=== PATIENT | male | born 1985 | race African-American/Black ===

== ENCOUNTER 2025-03-05 17:38 | Inpatient (IN) | payer BC ==
[2025-03-05 18:16] LABS: Absolute Lymphocytes (CBC) 2.0 K/uL (0.7-4.9); Hematocrit 43.8 % (39.6-49.0); Hemoglobin 14.4 g/dL (13.6-17.9); MCH 27.6 pg (27.0-35.0); MCHC 33.0 g/dL (32.0-36.0); MCV 83.7 fL (80-100); MPV 7.8 fL (7.6-11.3); Nucleated RBC Absolute Count 0.0 (0-0); Nucleated Red Blood Cells % 0.0 % (0-0); RBC Red Blood Cell Count 5.23 M/uL (4.33-5.43); White Blood Count 10.10 thou/uL (4.3-10.9)
[2025-03-05] MEDS ORDERED: NA CHLORIDE 0.9% 1,000 ML ONE (18:24)
[2025-03-05 18:33] LABS: Anion Gap 16.6 mEq/L (5.0-15.0); BUN Blood Urea Nitrogen 14.0 mg/dL (7-18); Glucose Level 98.0 mg/dL (74-106); Potassium 3.6 mEq/L (3.5-5.1)
--- NOTE | 2025-03-05 19:15 | RAD REPORT ---
EXAM: CT face with contrast HISTORY: Facial pain and swelling COMPARISON: None TECHNIQUE: Multiple contiguous axial images were obtained and a CT of the face with contrast. Sagitta l and coronal reformats were performed. Automated exposure control, adjustment of the mA and/or kV according to patient size, and/or iterative reconstruction. Unless otherwise specified, incidental f indings do not require dedicated imaging follow-up. FINDINGS: 4 x 3.5 x 2 cm (CC by AP by transverse) low-density fluid collection lies superficial to the left man dible. It has an enhancing rim and has the appearance of an abscess. Stranding is present within the adjacent fat. No abnormality of the parotid gland seen. Visualized airway unremarkable. No fluid visualized within the sinuses. IMPRESSION: 4 x 3.5 x 2 cm abscess superficial to the left mandible
[2025-03-05] MEDS ORDERED: CLINDAMYCIN 600MG/D5W 50 ML IV ONE (19:22)
[2025-03-05] MEDS ORDERED: NA CHLORIDE 0.9% 100 ML ONE (19:36)
[2025-03-05] MEDS ORDERED: AMPICILLIN/SULBACTAM 3GM/VIAL ONE (19:36)
--- NOTE | 2025-03-05 19:38 | ER ---
Nurse's Notes [facility] Name: Cory Zavala Jr Age: 39 yrs Sex: Male : 1985 Arrival Date: 03/05/2025 Time: 17:38 Bed 5 Private MD: Diagnosis: Facial Abscess;Facial Pain Presentation: 03/05 17:50 Chief complaint: Patient states: has had L-sided facial swelling and 10/10 pain from iw impacted wisdom teeth on the L side of the mouth for the past 10 days, described as achy. Was put on abx from oral surgeon, but was told to come here before he can proceed with surgery. Coronavirus screen: chills. Ebola Screen: Patient denies travel to an Ebola-affected area in the 21 days before illness onset. No symptoms or risks identified at this time. Initial Sepsis Screen: Does the patient meet any 2 criteria? No. Patient's initial sepsis screen is negative. Does the patient have a suspected source of infection? No. Patient's initial sepsis screen is negative. Risk Assessment: Do you want to hurt yourself or someone else? Patient reports no desire to harm self or others. Onset of symptoms was February 23, 2025. 17:50 Method Of Arrival: Ambulatory iw 17:50 Acuity: JEFFREY 3 iw Triage Assessment: 17:55 General: Appears distressed, uncomfortable, Behavior is cooperative, appropriate for iw age, crying, restless. Pain: Complains of pain in face Pain currently is 10 out of 10 on a pain scale. Quality of pain is described as aching, Pain began 10 days ago. EENT: Reports pain when swallowing. Historical: - Allergies: 17:55 No Known Allergies; iw - Home Meds: 17:55 Biktarvy oral [Active]; iw - PMHx: 17:55 HIV positive; iw - PSHx: 17:55 None; iw - Immunization history:: Adult Immunizations up to date. - Infectious Disease History:: Denies. - Social history:: Smoking status: Patient denies any tobacco usage or history of. Screenin:48 [facility] ED Fall Risk Assessment (Adult) History of falling in the last 3 months, tb4 including since admission No falls in past 3 months (0 pts) Confusion or Disorientation No (0 pts) Intoxicated or Sedated No (0 pts) Impaired Gait No (0 pts) Mobility Assist Device Used No (0 pt) Altered Elimination No (0 pt) Score/Fall Risk Level 0 - 2 = Low Risk Oriented to surroundings, Maintained a safe environment. Abuse screen: Denies threats or abuse. Denies injuries from another. Nutritional screening: No deficits noted. Tuberculosis screening: No symptoms or risk factors identified. Assessment: 19:48 Reassessment: Patient is alert, oriented x 3, equal unlabored respirations, skin tb4 warm/dry/pink. General: Appears uncomfortable, Behavior is calm, cooperative. Pain: Complains of pain in left cheek Pain does not radiate. Pain currently is 7 out of 10 on a pain scale. Quality of pain is described as pressure, shooting, Pain began gradually, 2-3 days ago. Is continuous, Alleviated by nothing. Neuro: No deficits noted. Level of Consciousness is awake, alert, obeys commands, Oriented to person, place, time, situation, Watch [employer] Clock Repairer are equal bilaterally Moves all extremities. Full function Gait is steady, Speech is normal, Facial symmetry appears normal, Swelling to left cheek for infected tooth. Respiratory: No deficits noted. Airway is patent Trachea midline Respiratory effort is even, unlabored, Respiratory pattern is regular, symmetrical. GI: No deficits noted. No signs and/or symptoms were reported involving the gastrointestinal system. : No signs and/or symptoms were reported regarding the genitourinary system. EENT: Oral mucosa is moist. swelling to left cheek from tooth abscess. Derm: Skin is intact, is healthy with good turgor, Skin is moist, Skin temperature is warm. Musculoskeletal: No deficits noted. No signs and/or symptoms reported regarding the musculoskeletal system. Circulation, motion, and sensation intact. Range of motion: intact in all extremities. 20:36 Reassessment: Patient appears in no apparent distress at this time. Patient and/or bm8 family updated on plan of care and expected duration. Pain level reassessed. Patient is alert, oriented x 3, equal unlabored respirations, skin warm/dry/pink. 21:24 Reassessment: Patient appears in no apparent distress at this time. No changes from bm8 previously documented assessment. Patient is alert, oriented x 3, equal unlabored respirations, skin warm/dry/pink. pt is resting with eyes closed brething is even unlbaored with symmetrical rise and fall of chest, denies pain at this time. Vital Signs: 17:50 BP 127 / 83; Pulse 90; Resp 20; Temp 98(TE); Pulse Ox 100% on R/A; Weight 61.23 kg; iw Height 5 ft. 8 in. ; Pain 10/10; 18:42 BP 130 / 78; Pulse 73; Resp 15; Pulse Ox 100% on R/A; hb 19:47 BP 135 / 82; Pulse 88; Resp 18; Pulse Ox 99% ; Weight 61.23 kg; Height 5 ft. 8 in. ; tb4 Pain 7/10; 20:36 BP 124 / 75; Pulse 88; Resp 17; Temp 98.1; Pulse Ox 100% ; Pain 1/10; bm8 21:24 BP 115 / 69; Pulse 69; Resp 17; Temp 98.1; Pulse Ox 100% ; Pain 0/10; bm8 19:47 Body Mass Index 20.53 (61.23 kg, 172.72 cm) tb4 17:50 Pain Scale: Adult iw 19:47 Pain Scale: Adult tb4 20:36 Pain Scale: Adult bm8 21:24 Pain Scale: Adult bm8 Dalbo Coma Score: 20:36 Eye Response: spontaneous(4). Motor Response: obeys commands(6). Verbal Response: bm8 oriented(5). Total: 15. 21:24 Eye Response: spontaneous(4). Motor Response: obeys commands(6). Verbal Response: bm8 oriented(5). Total: 15. ED Course: 17:42 Patient arrived in ED. im 17:46 Willi Zavala DO is Attending Physician. ms3 17:55 Triage completed. iw 18:07 Courtney Mckeon, RN is Primary Nurse. iw 18:12 BMP Sent. nh2 18:12 CBC with Diff Sent. nh2 18:12 Initial lab(s) drawn, by me, sent to lab. Missed attempt(s): Bleeding controlled, band rk3 aid applied, catheter tip intact. 18:32 Inserted saline lock: 20 gauge in right antecubital area, using aseptic technique. bp Blood collected. Flushed with 10 mL NS. 19:01 CT Maxillofacial W/cont In Process Unspecified. EDMS 19:38 Sal Jacob MD is Hospitalizing Provider. ms3 19:48 Patient has correct armband on for positive identification. Bed in low position. Call tb4 light in reach. Side rails up X 1. Client placed on continuous cardiac and pulse oximetry monitoring. NIBP monitoring applied. Pulse ox on. Door closed. Warm blanket given. 20:36 No provider procedures requiring assistance completed. Patient admitted, IV remains in bm8 place. 20:36 Provided Education on: need for admission. bm8 21:26 Arm band placed on right wrist. bm8 Administered Medications: 18:32 Drug: NS 0.9% IV 1000 ml IV at 1 bolus Per protocol; to be given as a bolus over 60 bp minutes Route: IV; Rate: 1 bolus; Site: right antecubital; 19:54 Follow up: Response: No adverse reaction; IV Status: Completed infusion tb4 18:32 Drug: Dexamethasone IVP 10 mg IVP once; (not to exceed 40 mg) Route: IVP; Site: right bp antecubital; 19:37 Follow up: Response: No adverse reaction tb4 19:34 Drug: Clindamycin IVPB 600 mg IVPB once over 30 mins; (mix in 50 mL) Route: IVPB; tb4 Infused Over: 30 mins; Site: right antecubital; 19:54 Follow up: Response: No adverse reaction; IV Status: Completed infusion tb4 19:53 Drug: Ampicillin-Sulbactam Sodium IVPB 3 grams IVPB once over 30 mins; (mix in 100 mL tb4 NS) Route: IVPB; Infused Over: 30 mins; Site: right antecubital; 20:36 Follow up: Response: No adverse reaction; IV Status: Completed infusion bm8 Medication: 19:48 VIS not applicable for this client. tb4 Outcome: 19:38 Decision to Hospitalize by Provider. ms3 21:24 Admitted to Med/surg accompanied by nurse, via wheelchair, room 225, with chart, bm8 21:24 Condition: stable 21:24 Instructed on follow up and referral plans. the need for admit, Demonstrated understanding of instructions, follow-up care, medications, 21:50 Patient left the ED. bm8 Signatures: Dispatcher [employer] EDMS Courtney Mckeon RN RN Yumiko Bermudez RN RN hb Peltier, Brian, RN RN bp Sims, Marcus, DO DO ms3 Juliette Rowan Brad, RN RN bm8 Nicolas Morgan Jr, RN RN nh2 Kathryn Domingo rk3 Lorin Lozano, RN RN tb4
--- NOTE | 2025-03-05 19:38 | EDPHYS ---
Physician Documentation [facility] Name: Cory Zavala Jr Age: 39 yrs Sex: Male : 1985 Arrival Date: 03/05/2025 Time: 17:38 Bed 5 Private MD: ED Physician Willi Zavala HPI: 03/05 17:59 This 39 yrs old Male presents to ER via Ambulatory with complaints of Toothache. ms3 17:59 This 39 yrs old Male presents to ER via Ambulatory with complaints of facial swelling. ms3 17:59 39-year-old male with past medical history of HIV presents to the emergency department ms3 for left sided facial pain for 10 days and left facial swelling for 5 days. Patient states he has been on Augmentin since without improvement of his symptoms. Patient rates his pain a 10/10. Patient endorses chills. Patient denies any alleviating or inciting factors. Patient denies nausea, vomiting. Patient states he was sent to the emergency department by oral maxillofacial surgery, Dr. Cavazos. Historical: - Allergies: 17:55 No Known Allergies; iw - Home Meds: 17:55 Biktarvy oral [Active]; iw - PMHx: 17:55 HIV positive; iw - PSHx: 17:55 None; iw - Immunization history:: Adult Immunizations up to date. - Infectious Disease History:: Denies. - Social history:: Smoking status: Patient denies any tobacco usage or history of. ROS: 17:59 Constitutional: Negative for fever, and chills. Cardiovascular: Negative for chest ms3 pain, and palpitations. Respiratory: Negative for shortness of breath, cough, wheezing, and pleuritic chest pain, Abdomen/GI: Negative for abdominal pain, nausea, vomiting, diarrhea, and constipation, MS/Extremity: Negative for injury and deformity, 17:59 ENT: Positive for left facial swelling, Exam: 17:59 Constitutional: This is a well developed, well nourished patient who is awake, alert, ms3 and in no acute distress. Cardiovascular: Regular rate and rhythm with a normal S1 and S2. No gallops, murmurs, or rubs. Normal PMI, no JVD. No pulse deficits. Respiratory: Lungs have equal breath sounds bilaterally, clear to auscultation and percussion. No rales, rhonchi or wheezes noted. No increased work of breathing, no retractions or nasal flaring. Abdomen/GI: Soft, non-tender, with normal bowel sounds. No distension or tympany. No guarding or rebound. No evidence of tenderness throughout. 17:59 Head/face: Noted is rash, swelling, that is moderate, of the left cheek, tenderness, that is moderate, of the left cheek, Vital Signs: 17:50 BP 127 / 83; Pulse 90; Resp 20; Temp 98(TE); Pulse Ox 100% on R/A; Weight 61.23 kg; iw Height 5 ft. 8 in. ; Pain 10/10; 18:42 BP 130 / 78; Pulse 73; Resp 15; Pulse Ox 100% on R/A; hb 19:47 BP 135 / 82; Pulse 88; Resp 18; Pulse Ox 99% ; Weight 61.23 kg; Height 5 ft. 8 in. ; tb4 Pain 7/10; 20:36 BP 124 / 75; Pulse 88; Resp 17; Temp 98.1; Pulse Ox 100% ; Pain 1/10; bm8 21:24 BP 115 / 69; Pulse 69; Resp 17; Temp 98.1; Pulse Ox 100% ; Pain 0/10; bm8 19:47 Body Mass Index 20.53 (61.23 kg, 172.72 cm) tb4 17:50 Pain Scale: Adult iw 19:47 Pain Scale: Adult tb4 20:36 Pain Scale: Adult bm8 21:24 Pain Scale: Adult bm8 Perfecto Coma Score: 20:36 Eye Response: spontaneous(4). Motor Response: obeys commands(6). Verbal Response: bm8 oriented(5). Total: 15. 21:24 Eye Response: spontaneous(4). Motor Response: obeys commands(6). Verbal Response: bm8 oriented(5). Total: 15. MDM: 17:46 Medical Screening Exam initiated ms3 17:59 Differential diagnosis: dental caries, gingivitis, dental abscess. ms3 19:29 Consideration of Admission/Observation Patient was admitted/placed on observation. ms3 Management of patient was discussed with the following: Scrapper: Discussed case with Dr Cavazos. He will consult tomorrow afternoon if patient is not improving on IV abx. Recommends Clindamycin and Unasyn . 19:31 Data reviewed: vital signs, nurses notes, lab test result(s), radiologic studies, and ms3 as a result, I will admit patient. I considered the following discharge prescriptions or medication management in the emergency department Medications were administered in the Emergency Department. See MAR. Counseling: I had a detailed discussion with the patient and/or guardian regarding the historical points, exam findings, and any diagnostic results supporting the discharge/admit diagnosis, lab results, radiology results, the need for further work-up and treatment in the hospital. 19:47 ED course: Discussed case with Laurita Bell and he accepts patient to the hospitalist ms3 service.. 03/05 17:59 Order name: CBC with Diff; Complete Time: 18:56 ms3 03/05 17:59 Order name: BMP; Complete Time: 18:56 ms3 03/05 20:54 Order name: CBC with Automated Diff EDMS 03/05 20:54 Order name: CBC with Automated Diff EDMS 03/05 20:54 Order name: CBC with Automated Diff EDMS 03/05 20:54 Order name: Comprehensive Metabolic Panel EDMS 03/05 20:54 Order name: Comprehensive Metabolic Panel EDMS 03/05 20:54 Order name: Comprehensive Metabolic Panel EDMS 03/05 20:54 Order name: Magnesium EDMS 03/05 20:54 Order name: Magnesium EDMS 03/05 20:54 Order name: Magnesium EDMS 03/05 17:59 Order name: CT Maxillofacial W/cont; Complete Time: 19:19 ms3 Administered Medications: 18:32 Drug: NS 0.9% IV 1000 ml IV at 1 bolus Per protocol; to be given as a bolus over 60 bp minutes Route: IV; Rate: 1 bolus; Site: right antecubital; 19:54 Follow up: Response: No adverse reaction; IV Status: Completed infusion tb4 18:32 Drug: Dexamethasone IVP 10 mg IVP once; (not to exceed 40 mg) Route: IVP; Site: right bp antecubital; 19:37 Follow up: Response: No adverse reaction tb4 19:34 Drug: Clindamycin IVPB 600 mg IVPB once over 30 mins; (mix in 50 mL) Route: IVPB; tb4 Infused Over: 30 mins; Site: right antecubital; 19:54 Follow up: Response: No adverse reaction; IV Status: Completed infusion tb4 19:53 Drug: Ampicillin-Sulbactam Sodium IVPB 3 grams IVPB once over 30 mins; (mix in 100 mL tb4 NS) Route: IVPB; Infused Over: 30 mins; Site: right antecubital; 20:36 Follow up: Response: No adverse reaction; IV Status: Completed infusion bm8 Disposition Summary: 03/05/25 19:38 Hospitalization Ordered Notes: Hospitalization Status: Inpatient Admission ms3 Provider: Sal Jacob ms3 Location: Telemetry/MedSur (Inpatient) ms3 Condition: Stable ms3 Problem: new ms3 Bed/Room Type: Standard ms3 Symptoms: are unchanged(03/05/25 19:38) ms3 Room Assignment: 225(03/05/25 21:05) [facility] Diagnosis - Facial Abscess ms3 - Facial Pain ms3 Forms: - Medication Reconciliation Form ms3 - SBAR form ms3 - Leadership Thank You Letter ms3 Signatures: Dispatcher [employer] EDCourtney Vera RN CHIQUIS Yon Callejas RN Willi Fernandez DO DO ms3 Bisi Muse [facility] Lorin Lozano RN RN tb4 Jose Hamilton RN bm8 Corrections: (The following items were deleted from the chart) 19:38 19:38 are resolved ms3 ms3 21:05 19:38 ms3 [facility]
[2025-03-06] MEDS: MORPHINE 4 MG/ML SYR IV PRN (00:02)
[2025-03-06] MEDS: D5 0.45 NS 1,000 ML IV SCH (00:03)
[2025-03-06 01:01] VITALS: BMI 19.8
[2025-03-06] MEDS: AMPICILLIN/SULBACT 3 GM in NA CHLORIDE 0.9% 100 ML IVPB SCH (02:31)
--- NOTE | 2025-03-06 02:49 | P.HP ---
Certification for Inpatient Patient admitted to: Inpatient With expected LOS: >2 Midnights Patient will require the following post-hospital care: None Practitioner: I am a practitioner with admitting privileges, knowledge of patient current condition, hospital course, and medical plan of care. Services: Services provided to patient in accordance with Admission requirements found in Title 42 Section 412.3 of the Code of Federal Regulations Patient History Date of Service: 03/05/25 Reason for admission: Abscess Superficial to the left mandible. History of Present Illness: Patient is a pleasant 39-year-old male with past medical history of HIV, who presents to the ER today complaining of severe left facial, and left side mouth pain. Patient states he started having mouth pain 10 days ago, states he was treating himself with hydrogen peroxide, but states the pain progressively worsened, states on he noticed that his left facial was getting swelling, and the pain was severe. States he called and made an appointment with the dentist that he went and saw on , states he was prescribed antibiotics Bactrim 875-125 mg p.o. twice daily and Motrin for pain. States despite taking the antibiotic as prescribed, he was not still feeling better, states today he went and saw an oral maxillary surgeon Dr. Rachid Cavazos-[phone], states the surgeon could not do any intervention at this time because of his left facial swelling, he then requested for patient to go to the ER. When patient was seen in ER for admission assessment, patient was fully awake, alert and oriented x 3, complains of severe pain to his left facial and left side of his mouth, examined inside of his mouth, with no airway compromise. Patient airway remain patent, denies of any shortness of breath or difficulty breathing. According to report received from ER Dr. Zavala, states he consulted Dr. Cavazos, who requested to have patient admitted and start patient on Unasyn or clindamycin IV, and Decadron to help with the inflammation, states when the inflammation is better he is going to take the patient into surgery. States for any severe change in patient condition, he can be called and he will take the patient in for surgery. Course in ER. CT face with contrast. Impression: 4 X 3.5 X2 centimeter abscess superficial to the left mandible. Patient also received Unasyn, and clindamycin both intravenous, and Decadron 10 mg IV. Allergies peanut Allergy (Verified 03/05/25 22:28) Itching Home Medications: Amoxicillin/Potassium Clav [Amox Tr-K Clv 875-125 mg Tab] 1 tab PO BID 03/05/25 Bictegrav/Emtricit/Tenofov Ala [Biktarvy 50-200-25 mg Tablet] 1 tab PO DAILY 03/05/25 Ibuprofen 600 mg PO Q6H PRN 03/05/25 - Past Medical/Surgical History Has patient received pneumonia vaccine in the past: Yes Diabetic: No -: HIV positive -: Patient states he does not have any past surgical history. - Family History Father -: Diabetes - Social History Smoking Status: Never smoker Alcohol use: No CD- Drugs: No Caffeine use: Yes Place of Residence: Home Review of Systems 10-point ROS is otherwise unremarkable ENT: Mouth Pain (Left-sided mouth pain and left facial pain swelling.), Mouth Swelling Physical Examination - Vital Signs Temperature: 97.6 F Blood Pressure: 141/66 Pulse: 67 Respirations: 18 Pulse Ox (%): 100 - Physical Exam General: Alert, In no apparent distress, Oriented x3, Cooperative HEENT: Atraumatic, Normocephalic, PERRLA, Mucous membr. moist/pink Neck: Supple, 2+ carotid pulse no bruit, No LAD, Without JVD or thyroid abnormality Respiratory: Clear to auscultation bilaterally, Normal air movement Cardiovascular: No edema, Normal pulses, Regular rate/rhythm, Normal S1 S2, No gallops, No rubs, No murmurs Capillary refill: <2 Seconds Gastrointestinal: Normal bowel sounds, Soft and benign, Non-distended, W/out hepatomegaly, No ascites, No tenderness, No masses, No rebound, No guarding Musculoskeletal: No clubbing, No swelling, No contractures, No erythema, No tenderness, No warmth Integumentary: No rashes, No breakdown, No significant lesion, No tenderness/swelling, No erythema, No warmth, No cyanosis Neurological: Normal gait, Normal speech, Normal strength at 5/5 x4 extr, Normal tone, Sensation intact, Cranial nerves 3-12 intact, Normal reflexes 2+, Normal affect Lymphatics: No axilla or inguinal lymphadenopathy - Studies Laboratory Data (last 24 hrs) 08/18/25 08/18/25 18:10 18:10 WBC 10.10 Hgb 14.4 Hct 43.8 Plt Count 284 Sodium 139 Potassium 3.6 BUN 14 Creatinine 1.16 Glucose 98 Male Exam - Male Exam Inguinal exam: No hernias Assessment and Plan - Plan Patient is a pleasant 89-year-old male admitted with abscess superficial to left mandible. Patient left side of his face is swollen, states not able to eat at this time. Patient airway not compromised and remains patent on examination. (1)Abscess left facial (superficial to the left mandible). -IV D5 half NS at 125 mL/ hr. Patient not able to eat at this time. -Decadron 4 mg IV every 6 hours. -Unasyn 3 g IV every 6 hours. -Morphine 4 mg as needed every 4 hours. -Dr. Rachid Cavazos-[phone] on consult. (2)DVT prophylaxis. -Lovenox 40 mg subcu daily. (3)Explained entire treatment plan to the patient, solicit questions answered and voiced understanding. Discharge Plan: Home Plan to discharge in: Greater than 2 days - Advance Directives Does patient have a Living Will: No Does patient have a Durable POA for Healthcare: No - Code Status/Comfort Care Code Status Assessed: Yes Code Status: Full Code Critical Care: No Time Spent Managing Pts Care (In Minutes): 55
[2025-03-06 04:32] LABS: Absolute Lymphocytes (CBC) 0.7 K/uL (0.7-4.9); Hematocrit 39.1 % (39.6-49.0); Hemoglobin 13.1 g/dL (13.6-17.9); MCH 28.0 pg (27.0-35.0); MCHC 33.5 g/dL (32.0-36.0); MCV 83.6 fL (80-100); MPV 8.0 fL (7.6-11.3); Nucleated RBC Absolute Count 0.0 (0-0); Nucleated Red Blood Cells % 0.0 % (0-0); RBC Red Blood Cell Count 4.68 M/uL (4.33-5.43); White Blood Count 7.20 thou/uL (4.3-10.9)
[2025-03-06 04:56] LABS: ALT/SGPT 27.0 U/L (16-61); AST/SGOT 14.0 U/L (15-37); Albumin 3.4 g/dL (3.4-5.0); Albumin/Globulin Ratio 0.9 (1.1-1.8); Alkaline Phosphatase 53.0 U/L (45-117); Anion Gap 7.4 mEq/L (5.0-15.0); BUN Blood Urea Nitrogen 15.0 mg/dL (7-18); Globulin 3.8 g/dL (2.3-3.5); Glucose Level 135.0 mg/dL (74-106); Magnesium 2.1 mg/dL (1.6-2.4); Potassium 4.4 mEq/L (3.5-5.1)
[2025-03-06 05:21] LABS: Differential Total Cells Count 100; Segmented Neutrophils 76 % (40-80)
[2025-03-06 05:22] LABS: Blood Morphology Comment NOT SEEN (NOT SEEN)
[2025-03-06 05:47] VITALS: O2SAT 100
[2025-03-06] MEDS: ENOXAPARIN 40 MG/0.4 ML SQ SCH (08:16)
[2025-03-07 04:27] LABS: Absolute Lymphocytes (CBC) 1.0 K/uL (0.7-4.9); Hematocrit 36.6 % (39.6-49.0); Hemoglobin 12.7 g/dL (13.6-17.9); MCH 28.8 pg (27.0-35.0); MCHC 34.7 g/dL (32.0-36.0); MCV 83.0 fL (80-100); MPV 7.7 fL (7.6-11.3); Nucleated RBC Absolute Count 0.0 (0-0); Nucleated Red Blood Cells % 0.1 % (0-0); RBC Red Blood Cell Count 4.41 M/uL (4.33-5.43); White Blood Count 10.60 thou/uL (4.3-10.9)
[2025-03-07 04:44] LABS: ALT/SGPT 26 U/L (16-61); Albumin 2.9 g/dL (3.4-5.0); Albumin/Globulin Ratio 0.8 (1.1-1.8); Alkaline Phosphatase 45 U/L (45-117); Anion Gap 7.9 mEq/L (5.0-15.0); BUN Blood Urea Nitrogen 7 mg/dL (7-18); Globulin 3.7 g/dL (2.3-3.5); Glucose Level 144 mg/dL (74-106); Magnesium 2.0 mg/dL (1.6-2.4); Potassium 3.9 mEq/L (3.5-5.1)
[2025-03-07 04:49] LABS: AST/SGOT < 10 U/L (15-37)
[2025-03-07] MEDS: KCL 20 MEQ/100 mL IVPB 20 MEQ/100 ML BAG IV SCH (05:05)
[2025-03-07 11:57] VITALS: BP 130/70; TEMP 98
== END 2025-03-07 11:35 | disposition home or self-care (01) | DRG 158 ==
LOC: ER 17:38 → ERHOLD 20:45 → 2ND 21:20
PROVIDERS: ADMIT Hospitalist; ATTEND Hospitalist
DX: M27.2 Inflammatory conditions of jaws (principal); B20 Human immunodeficiency virus [HIV] disease; Z79.2 Long term (current) use of antibiotics; Z79.899 Other long term (current) drug therapy
CPT/HCPCS: 36415; 70487; 80048; 80053; 83735; 85025; 96361; 96365; 96375; 99285; J0295; J1100; J1650; J3480; J7030; J7799; Q9967